=== PATIENT | male | born 2000 | race Caucasian/White ===

== ENCOUNTER 2018-10-10 23:57 | Emergency (ER) | payer BC ==
--- NOTE | 2018-10-11 00:23 | EDPHY ---
H & P Stated Complaint: hand lac - Personal History Current Tetanus Diphtheria and Acellular Pertussis (TDAP): Unsure - Medical/Surgical History Hx Asthma: Yes Hx Chronic Respiratory Disease: No Hx Diabetes: No Hx Cardiac Disease: No Hx Renal Disease: No Hx Cirrhosis: No Hx Alcoholism: No Hx HIV/AIDS: No Hx Splenectomy or Spleen Trauma: No Other PMH: denies - Social History Smoking Status: Current some day smoker Time Seen by Provider: 10/11/18 00:04 HPI/ROS: Chief complaint: Right hand lacerations History of present illness: This is a 18-year-old male, accompanied by his girlfriend to the emergency department for right hand lacerations. Patient reports a glass broke in his hand. He cut the flexor surface of his 3rd and 4th finger. Bleeding has been controlled with a dressing. Minimal pain. He can still move the hand well. He denies abnormal coolness or paresthesias. His tetanus is up-to-date. (Armando Lawton) - Physical Exam Exam: General: Alert, nontoxic. Skin: There is a horizontal 1 cm laceration of the flexor surface of the 3rd and 4th finger distally. Exploration does not reveal foreign bodies. Musculoskeletal: He is extending the 3rd and 4th finger in the DIP, PIP and MCP joint well. He can flex in the DIP, PIP and MCP joint although some difficulty you with the DIP joint. Vascular: Capillary refill is brisk and the 3rd and 4th finger. Neurologic: Sensation intact using light touch and two-point discrimination ( Armando Lawton) Constitutional: Initial Vital Signs Temperature (C) 36.5 C 10/11/18 00:01 Heart Rate 75 10/11/18 00:01 Respiratory Rate 14 10/11/18 00:01 Blood Pressure 114/77 10/11/18 00:01 O2 Sat (%) 98 10/11/18 00:01 O2 Delivery Mode Room Air Allergies/Adverse Reactions: No Known Allergies Allergy (Unverified 04/18/18 09:56) Home Medications: Medication Instructions Recorded Adderall 10 mg Tablet 04/18/18 Cephalexin [Keflex] 500 mg PO TID 4 Days cap 10/11/18 Medical Decision Making - Diagnostics Imaging: I viewed and interpreted images myself Procedures: Procedure: Laceration repair. Verbal consent was obtained from the patient. The 1 cm laceration on the right 3rd finger was anesthetized in the usual fashion. The wound was irrigated, draped and explored to its base with a gloved finger. There were no deep structures involved. No tendon injury was identified. The wound was repaired with 5 0 Prolene, 3 simple interrupted sutures. The wound repair was simple. The procedure was performed by myself. Procedure: Laceration repair. Verbal consent was obtained from the patient. The 1 cm laceration on the right 4th finger was anesthetized in the usual fashion. The wound was irrigated, draped and explored to its base with a gloved finger. There were no deep structures involved. No tendon injury was identified. The wound was repaired with 5 0 Prolene, 3 simple interrupted sutures. The wound repair was simple. The procedure was performed by myself. Procedure: Splint placement. A finger splint was applied. After application of the splint I returned and re- examined the patient. The splint was adequately immobilizing the joint and distal to the splint the patient's circulation and sensation was intact. (Armando Lawton) ED Course/Re-evaluation: Patient seen under the supervision of my secondary supervising physician Dr. Brooke Fine. Patient presents to the emergency department for lacerations to the flexor surface of his right 3rd and 4th finger. His fingers appear neurovascularly intact. He does appear to be able to flex in the DIP, PIP and MCP joint of both the 3rd and 4th finger. The wounds have been anesthetized, cleaned, tourniquets are applied and wounds are explored. I did not appreciate foreign body or deep structure injury to the tendon although I was not able to fully visualize to the base of the wounds. Wounds were sutured shut. I did decide to get x-rays to ensure no foreign bodies, please note x- rays were obtained after sutures were placed. I did not identify any foreign bodies. Patient was splinted. I will be conservative and treat him with a around of oral antibiotics. I have discussed with the patient and his girlfriend the importance of close follow-up with a hand surgeon for further evaluation and care. They are given referral information. Home care is discussed. Return precautions are given. The patient voiced understanding and agreement with plan. (Armando Lawton) PHYSICIAN DOCUMENTATION: The patient was evaluated and managed by the Physician Res Habilitation Assistant. My co- signature indicates that I have reviewed this chart and I agree with the findings and plan of care as documented. I am the secondary supervising physician. (Brooke Fine) Differential Diagnosis: Included but not limited to superficial injury, deep structure injury, foreign body contamination (Armando Lawton) - Data Points Medications Given: Discontinued Medications Cephalexin (Keflex 500 Mg Prepack#4) 1 btl TAKEHOME EDNOW ONE PRN Reason: Protocol Stop: 10/11/18 00:42 Last Admin: 10/11/18 01:25 Dose: Not Given Cephalexin (Keflex 500 Mg Prepack#4) 1 btl TAKEHOME EDNOW ONE PRN Reason: Protocol Stop: 10/11/18 01:19 Last Admin: 10/11/18 01:18 Dose: 1 btl Departure - Departure Disposition: Home, Routine, Self-Care Clinical Impression: Finger laceration Qualifiers: Encounter type: initial encounter Finger: unspecified finger Damage to nail status: without damage Foreign body presence: without foreign body Laterality: right Qualified Code(s): S61.219A - Laceration without foreign body of unspecified finger without damage to nail, initial encounter Condition: Good Instructions: Cephalexin (By mouth), Finger Laceration (ED) Additional Instructions: Please follow-up with a hand surgeon next week for recheck without fail Stitches are to be removed in 7-10 days unless told otherwise by the hand surgery If symptoms worsen or new symptoms develop return to the emergency room for recheck Referrals: NONE *PRIMARY CARE P,. [Primary Care Provider] - As per Instructions Mckayla Stock MD [Medical Doctor] - As per Instructions Prescriptions: Cephalexin [Keflex] 500 mg PO TID 4 Days cap
[2018-10-11] MEDS ORDERED: CEPHALEXIN 500MG PREPACK#4 BTL TAKEHOME ONE ×2 (00:41→01:18)
[2018-10-11] MEDS ORDERED: NS 1,000 ML IV ONE (00:55)
[2018-10-11] MEDS ORDERED: predniSONE 20 MG TAB PO ONE (00:55)
[2018-10-11] MEDS ORDERED: RANITIDINE 50 MG/2 ML VIAL IVP ONE (00:55)
[2018-10-11 01:43] VITALS: BP 124/53
== END 2018-10-11 01:57 | disposition home or self-care (01) ==
PROC: 0HQFXZZ Repair Right Hand Skin, External Approach (ICD-10-PCS; principal; 2018-10-10)
DX: S61.411A Laceration without foreign body of right hand, initial encounter (principal); W25.XXXA Contact with sharp glass, initial encounter; Y92.9 Unspecified place or not applicable; Y93.9 Activity, unspecified; Y99.9 Unspecified external cause status